=== PATIENT | female | born 1970 | race Asian ===

== ENCOUNTER 2016-11-11 08:09 | Emergency (ER) | payer SELFPAY ==
[~2016-11-11] VITALS: Ht 170.2 cm; Wt 113.4 kg
[2016-11-11 08:13] VITALS: BP 152/79
--- NOTE | 2016-11-11 08:17 | NUR ---
Pt taken to bed 3.
[2016-11-11 08:18] VITALS: BP 152/79
--- NOTE | 2016-11-11 08:18 | NUR ---
45/F BIB SELF C/O UTI S/SX X1 WEEK. PT STS HAS URINARY BURNING SENSATION 01/03. PT STS HAD UTI X 1MO AGO & FINISHED [facility] MED BUT IT DOESN'T HELP. HX OF KIDNEY STONE . DENIES N/V/D; SKIN IS PINK/WARM/DRY; AAOX4 WITH EVEN AND STEADY GAIT; LUNGS CLEAR BL; HR EVEN AND REGULAR; PT DENIES ANY FEVER, CP, SOB, OR COUGH AT THIS TIME ; VSS; PATIENT POSITIONED FOR COMFORT; HOB ELEVATED; BEDRAILS UP X2; BED DOWN. ER MD MADE AWARE OF PT STATUS.
--- NOTE | 2016-11-11 08:18 | NUR ---
Note undone in EDM - 11/11/16 at 0912 by MED1 45/F BIB SELF C/O UTI S/SX X1 WEEK. PT STS HAS URINARY BURNING SENSATION 01/03. PT STS HAD UTI X 1MO AGO & FINISHED [facility] MED BUT IT DOESN'T HELP. HX OF KIDNEY STONE . DENIES N/V/D; SKIN IS PINK/WARM/DRY; AAOX4 WITH EVEN AND STEADY GAIT; LUNGS CLEAR BL; HR EVEN AND REGULAR; PT DENIES ANY FEVER, CP, SOB, OR COUGH AT THIS TIME ; VSS; PATIENT POSITIONED FOR COMFORT; HOB ELEVATED; BEDRAILS UP X2; BED DOWN. ER MADE AWARE OF PT STATUS.
[2016-11-11 08:50] LABS: APPEARANCE,URINE CLOUDY (CLEAR); BILIRUBIN,URINE NEGATIVE (NEGATIVE); BLOOD, URINE 3+ (NEGATIVE); COLOR,URINE YELLOW (YELLOW); LEUKOCYTE ESTERASE ,URINE 3+ (NEGATIVE); NITRITE, URINE POSITIVE (NEGATIVE); PH,URINE 5.5 (5.0-9.0); PROTEIN,URINE 1+ (NEGATIVE); UGLUCOSE NEGATIVE (NEGATIVE); UROBILINOGEN,URINE 0.2 EU/dL (0.2 - 1)
--- NOTE | 2016-11-11 08:56 | NUR ---
ER MD DR PEDROZA EVALUATING PT AT BEDSIDE.
[2016-11-11 08:58] LABS: BACTERIA,URINE OCCASSIONAL /HPF (None Seen); RBC,URINE 0-5 (RARE) /HPF (0-5); WBC,URINE TOO MANY TO COUNT /HPF (0-5)
[2016-11-11 08:59] LABS: SQUAMOUS EPITHELIAL CELL,UR 0-3 (FEW) /LPF (0-3 (FEW))
[2016-11-11] MEDS ORDERED: LEVOFLOXACIN 500 MG TAB PO ONE (09:00)
[2016-11-11] MEDS ORDERED: PHENAZOPYRIDINE 100 MG TAB PO ONE (09:00)
--- NOTE | 2016-11-11 09:00 | NUR ---
Patient appears to be resting comfortably in bed.BP 139/74; DENIES HEADACHE OR DIZZINESS; MD AWARE. Respirations even and unlabored.WILL CONTINUE TO MONITOR
--- NOTE | 2016-11-11 09:14 | NUR ---
GAVE MEDS ORDER
--- NOTE | 2016-11-11 09:34 | NUR ---
Patient discharged with BP 139/74 ; DENIES HEADACHE OR DIZINESS; MD AWARE. Written and verbal after care instructions given and explained. Patient alert, oriented and verbalized understanding of instructions. Ambulatory with steady gait. All questions addressed prior to discharge. ID band removed. Patient advised to follow up with PMD. Rx of PYRIDIUM, NORCO & CIPRO given. Patient educated on indication of medication including possible reaction and side effects. Opportunity to ask questions provided and answered.
== END 2016-11-11 09:34 | disposition home or self-care (01) ==
LOC: MED 08:09
DX: N39.0 Urinary tract infection, site not specified (principal); Z90.89 Acquired absence of other organs
CPT/HCPCS: 81001; 87086; 99284

== ENCOUNTER 2020-03-23 12:27 | Emergency (ER) | payer OTHER ==
[~2020-03-23] VITALS: Ht 170.2 cm; Wt 126.2 kg
[2020-03-23 12:30] VITALS: BP 147/91
--- NOTE | 2020-03-23 12:42 | NUR ---
PATIENT AMBULATED TO BED 5.
[2020-03-23] MEDS ORDERED: KETOROLAC 60 MG/2 ML VIAL IM ONE (12:50)
[2020-03-23] MEDS ORDERED: HYDROcodone/APAP 5/325 MG 1 TAB TAB PO ONE (12:50)
--- NOTE | 2020-03-23 13:00 | NUR ---
49 YEAR OLD FEMALE COMPLAINS OF SWELLING IN HANDS AND FEET. PT STATES THAT ITS PAINFUL, HAS HISTORY OF RHEUMATOID ARTHRITIS. EXTREMITIES CAP REFILL <3 SEC. PT AOX4, BREATHING EVEN AND UNLABORED, SKIN WARM AND DRY. BED IN LOWEST POSITION, LOCKED, BED RAIL UPX1. PMH - RA ALLERGIES - NKA
[2020-03-23 13:15] VITALS: BP 147/91
--- NOTE | 2020-03-23 13:15 | NUR ---
Note dioalanna in EDM - 03/23/20 at 1319 by MEDJJ 49 YEAR OLD FEMALE COMPLAINS OF SWELLING IN HANDS AND FEET. PT STATES THAT ITS PAINFUL, HAS HISTORY OF RHEUMATOID ARTHRITIS. EXTREMITIES CAP REFILL <3 SEC. PT AOX4, BREATHING EVEN AND UNLABORED, SKIN WARM AND DRY. BED IN LOWEST POSITION, LOCKED, BED RAIL UPX1. PMH - RA ALLERGIES - NKA
--- NOTE | 2020-03-23 13:15 | NUR ---
Patient discharged with v/s stable. Written and verbal after care instructions about arthritis (nonspecific) given and explained. Patient alert, oriented and verbalized understanding of instructions. Ambulatory with steady gait. All questions addressed prior to discharge. ID band removed. Patient advised to follow up with PMD. Rx of norco given. Patient educated on indication of medication including possible reaction and side effects. Opportunity to ask questions provided and answered.
== END 2020-03-23 13:15 | disposition home or self-care (01) ==
LOC: MED 12:27
DX: M06.9 Rheumatoid arthritis, unspecified (principal); M79.643 Pain in unspecified hand; N28.9 Disorder of kidney and ureter, unspecified
CPT/HCPCS: 96372; 99283; J1885

== ENCOUNTER 2020-03-26 15:04 | Emergency (ER) | payer OTHER ==
[~2020-03-26] VITALS: Ht 170.2 cm; Wt 126.6 kg
[2020-03-26 15:24] VITALS: BP 155/90
--- NOTE | 2020-03-26 15:55 | NUR ---
C/O PAIN TO BILAT HAND & FEET PAIN DUE TO ARTHRITIS. PT WAS SEEN HERE FOR THE SAME ISSUE LAST WEEK AND WAS GIVEN TORADOL AND STATES IT DID NOT HELP HER PAIN LEVEL. PT REPORTS USING NAPROXEN AND IBUPROFEN FOR PAIN RELIEF AT HOME BUT IT IS NOT HELPING ANY MORE. PT DENIES INJURY/TRAUMA.
--- NOTE | 2020-03-26 15:55 | NUR ---
DR. KONG ASSESSING PT AT BEDSIDE
[2020-03-26 16:30] VITALS: BP 155/90
== END 2020-03-26 16:20 | disposition home or self-care (01) ==
LOC: MED 15:04
DX: M06.9 Rheumatoid arthritis, unspecified (principal); M25.50 Pain in unspecified joint; M25.40 Effusion, unspecified joint; N28.9 Disorder of kidney and ureter, unspecified
CPT/HCPCS: 99281

== ENCOUNTER 2020-05-15 10:14 | Emergency (ER) | payer OTHER ==
[~2020-05-15] VITALS: Ht 172.7 cm; Wt 127.9 kg
[2020-05-15 10:18] VITALS: BP 164/121
--- NOTE | 2020-05-15 10:18 | NUR ---
Patient ambulated to bed 11. RN evaluating patient at bedside.
[2020-05-15] MEDS ORDERED: KETOROLAC 60 MG/2 ML VIAL IM ONE (10:30)
[2020-05-15] MEDS ORDERED: predniSONE 20 MG TAB PO ONE (10:30)
--- NOTE | 2020-05-15 10:40 | NUR ---
49 Y/O FEMALE PT C/O BILATERAL HAND AND FEET PAIN THAT RADIATES UP EXTREMITIES. VISIBLE SWELLING AND REDNESS. PT HAS BEEN TAKING NAPROXEN WITH NO RELIEF. PT THINKS IT MAY HAVE FLARED UP DUE TO DIET. PT ATE SEAFOOD (FISH) 2 WEEKS AGO AND NOTICED THE SWELLING STARTED. MEDICAL HX OF RA. NKDA. NO SOB, COUGH, CHEST PAIN, OR OTHER COVID SYMPTOMS.
[2020-05-15 11:28] VITALS: BP 190/105
--- NOTE | 2020-05-15 11:28 | NUR ---
Patient discharged with v/s stable. Written and verbal after care instructions given and explained. Patient alert, oriented and verbalized understanding of instructions. Ambulatory with steady gait. All questions addressed prior to discharge. ID band removed. Patient advised to follow up with PMD. Rx of NORCO AND PREDNISONE given. Patient educated on indication of medication including possible reaction and side effects. Opportunity to ask questions provided and answered.
== END 2020-05-15 11:28 | disposition home or self-care (01) ==
LOC: MED 10:14
DX: M06.9 Rheumatoid arthritis, unspecified (principal); R03.0 Elevated blood-pressure reading, without diagnosis of hypertension; Z87.442 Personal history of urinary calculi
CPT/HCPCS: 96372; 99283; J1885; J7512

== ENCOUNTER 2020-06-26 15:41 | Emergency (ER) | payer OTHER ==
[~2020-06-26] VITALS: Ht 172.7 cm; Wt 122.5 kg
[2020-06-26 15:47] VITALS: BP 165/70
--- NOTE | 2020-06-26 16:00 | NUR ---
Patient ambulated to bed 4 with steady/even gait.
--- NOTE | 2020-06-26 16:05 | NUR ---
SYED Garza is evaluating patient at bedside.
[2020-06-26] MEDS ORDERED: ONDANSETRON 4 MG ODT PO ONE (16:10)
--- NOTE | 2020-06-26 16:10 | NUR ---
49 y/o f coming in from home with c/c of dysuria. Pt states painful urination since this Wednesday with foul odor. Pt denies any hematuria. Pt states associated nausea and subrapubic pain when she pees. Pt denies medication prior to arrival. Denies back pain, fever, body aches, chils, cough. Pt placed onto cafeteria monitor. Bed locked in lowest position, side rails x 1, call light in reach. PMH: Kidney stones, Rheaumatoid arthritis Meds: NA NKA
[2020-06-26] MEDS ORDERED: CEPH500C16 PO (16:27)
[2020-06-26] MEDS ORDERED: PYR100 PO (16:27)
[2020-06-26] MEDS ORDERED: ONDA4TAB PO (16:30)
[2020-06-26 16:45] VITALS: BP 135/70
--- NOTE | 2020-06-26 16:45 | NUR ---
Patient discharged with v/s stable. Written and verbal after care instructions given and explained. Patient alert, oriented and verbalized understanding of instructions. Ambulatory with steady gait. All questions addressed prior to discharge. ID band removed. Patient advised to follow up with PMD. Rx of Cephalexin, Phenazopyridine, Zofran given. Patient educated on indication of medication including possible reaction and side effects. Opportunity to ask questions provided and answered.
== END 2020-06-26 16:45 | disposition home or self-care (01) ==
LOC: MED 15:41
DX: N39.0 Urinary tract infection, site not specified (principal); R03.0 Elevated blood-pressure reading, without diagnosis of hypertension; Z87.442 Personal history of urinary calculi; Z79.899 Other long term (current) drug therapy
CPT/HCPCS: 81002; 87086; 99283; Q0162

== ENCOUNTER 2020-07-21 22:02 | Emergency (ER) | payer OTHER ==
[~2020-07-21] VITALS: Ht 172.7 cm; Wt 129.7 kg
[~2020-07-21 22:02] MED LIST: CEPH500C16 PO; ONDA4TAB PO; PYR100 PO
[2020-07-21 22:38] VITALS: BP 181/96
--- NOTE | 2020-07-21 23:26 | NUR ---
2320 TO ER BED 9
--- NOTE | 2020-07-21 23:35 | NUR ---
PATIENT PRESENTS TO ED WITH FLU-LIKE SYMPTOMS. PT STATES SHE'S BEEN SICK SINCE WEDNESDAY, HAS A SLIGHT COUGH, AND MALAISE. DENIES N/V/D; SKIN IS PINK/WARM/DRY; AAOX4 WITH EVEN AND STEADY GAIT; HR EVEN AND REGULAR; VSS; PATIENT POSITIONED FOR COMFORT; HOB ELEVATED; BEDRAILS UP X2; BED DOWN. ER MD MADE AWARE OF PT STATUS. PMH: ARTHRITIS ALLERGIES: NKA
--- NOTE | 2020-07-21 23:52 | NUR ---
NOVEL CORONAVIRUS SENT TO LAB
--- NOTE | 2020-07-22 01:45 | NUR ---
FLU SWAB COLLECTED AND HANDED TO VARSHA DEL TORO
[2020-07-22] MEDS ORDERED: IBUP-2213 PO (02:54)
[2020-07-22] MEDS ORDERED: PROM118S5 PO (02:54)
[2020-07-22 03:25] VITALS: BP 181/96
--- NOTE | 2020-07-22 03:25 | NUR ---
Patient discharged with v/s stable. Written and verbal after care instructions given and explained. Patient alert, oriented and verbalized understanding of instructions. Ambulatory with steady gait. All questions addressed prior to discharge. ID band removed. Patient advised to follow up with PMD. Rx of IBUPROFEN, PROMETHAZINE given. Patient educated on indication of medication including possible reaction and side effects. Opportunity to ask questions provided and answered.
== END 2020-07-22 03:25 | disposition home or self-care (01) ==
LOC: MED 22:02
DX: J06.9 Acute upper respiratory infection, unspecified (principal); Z20.822 Contact with and (suspected) exposure to COVID-19
CPT/HCPCS: 87804; 99283; U0003

== ENCOUNTER 2021-08-26 12:40 | Emergency (ER) | payer OTHER ==
[~2021-08-26] VITALS: Ht 172.7 cm; Wt 118.0 kg
[~2021-08-26 12:40] MED LIST changes: +IBUP-2213 PO; +PROM118S5 PO
[2021-08-26 12:52] VITALS: BP 106/55
--- NOTE | 2021-08-26 12:59 | NUR ---
PT TO LOBBY.
--- NOTE | 2021-08-26 13:35 | NUR ---
PT AMBULATED TO ER BED 4 WITH A STEADY GAIT.
[2021-08-26] MEDS ORDERED: KETOROLAC 30 MG/ML VIAL IM ONE (14:20)
[2021-08-26] MEDS ORDERED: CEPH-588 PO (14:39)
--- NOTE | 2021-08-26 14:53 | NUR ---
Patient discharged with v/s stable. Written and verbal after care instructions FOR PYELONEPHRITIS given and explained. Patient alert, oriented and verbalized understanding of instructions. Ambulatory with steady gait. All questions addressed prior to discharge. ID band removed. Patient advised to follow up with PMD. Rx of CEPHALEXIN given. Opportunity to ask questions provided and answered.
--- NOTE | 2021-08-26 14:56 | NUR ---
The patient's care was reviewed and supervised by Nazia Silvestre RN.
== END 2021-08-26 14:53 | disposition home or self-care (01) ==
LOC: MED 12:40
DX: N12 Tubulo-interstitial nephritis, not specified as acute or chronic (principal); Z87.448 Personal history of other diseases of urinary system; Z79.2 Long term (current) use of antibiotics; Z79.899 Other long term (current) drug therapy; Z79.1 Long term (current) use of non-steroidal anti-inflammatories (NSAID)
CPT/HCPCS: 81002; 96372; 99283; J1885